=== PATIENT | male | born 1995 | race African-American/Black ===

== ENCOUNTER 2017-09-01 20:35 | Emergency (ER) | payer MEDICAID, SELFPAY ==
[2017-09-01 20:37] VITALS: BP 133/74; PULSE 93; RESP 18; TEMP 36.3; O2SAT 97; BMI 25.7
--- NOTE | 2017-09-01 21:00 | RAD_ITS ---
STUDY: X-RAY - ABDOMEN/PELVIS REASON FOR EXAM: Male, 22 years old. Abdominal pain and constipation TECHNIQUE: KUB COMPARISON: None. FINDINGS: Normal visualized lung bases. There is an unremarkable bowel gas pattern. There is no demonstrated free abdominal air. The visualized liver, spleen and kidneys are grossly normal in size and morphology. Normal soft tissue structures. Normal visualized osseous structures. RAD/Abdomen Single View IMPRESSION: Normal x-ray examination of the abdomen and pelvis. Electronically Signed: Andres Nava MD at 21:22 EDT , Service support ,
--- NOTE | 2017-09-01 22:01 | ED.DCSUM_ITS ---
- ER Visit Summary Date of Service: 09/01/17 Chief Complaint: Abdominal pain/constipation History of Present Illness: The patient is a 22 M who states over the past 2 weeks his constipation is been getting worse. He has cramping and sharp pain on the right side of his abdomen. He has had some slight nausea without vomiting. He states he has a history of constipation and IBS. He was taking Dulcolax and MiraLAX with leaf was stopped taking it. He is also requesting that we refill his depression medications. Physical Examination: Vital signs reviewed. HEENT exam unremarkable. Heart is regular rate and rhythm without murmurs. Lungs are clear to auscultation. Abdomen is soft with diffuse tenderness but right greater than left. Extremities reveal no edema. Skin exam normal. Neurologic exam normal. Test Results: KUB reveals nonspecific bowel gas Emergency Department Course and Treatment: I will restart the patient on his constipation medications. I will also refill his depression medications Treatment Plan: [] Disposition: Discharge Impression: Constipation This note was generated with [employer] dictation software. It may contain incorrect words, spelling, and punctuation that were not noted in review of the chart prior to signing ED Disposition - Plan for ED Patient: Chief Complaint: Abd Pain Referrals: Care Physician,No Primary [Primary Care Provider] -
--- NOTE | 2017-09-01 22:01 | ED.DEP ---
ED Disposition - Plan for ED Patient: Disposition: Home or Assisted Living Chief Complaint: Abd Pain Instructions: ED Constipation Prescriptions: Bisacodyl [Dulcolax] 5 mg PO DAILY #20 tab Polyethylene Glycol 3350 [Miralax] 17 gm PO DAILY #20 packet Sertraline HCl [Zoloft] 25 mg PO DAILY #30 tab Referrals: Care Physician,No Primary [Primary Care Provider] -
[2017-09-01 22:11] VITALS: RESP 16
--- NOTE | 2017-09-01 22:12 | ED.RN ---
REVIEWED D/C INSTRUCTIONS, FOLLOW UP CARE, PRESCRIPTIONS, AND S/S THAT WOULD WARRANT A RETURN TO THE ED WITH PT. PT VERBALIZED AN UNDERSTANDING AND DENIES FURTHER QUESTIONS FOR THIS RN. PT SKIN WARM AND DRY, RESP EVEN AND UNLABORED, PT A&O X 3, NO DISTRESS NOTED. PT AMBULATED OUT OF ED, GAIT STEADY.
== END 2017-09-01 22:13 | disposition home or self-care (01) ==
PROVIDERS: Emergency Provider Emergency Medicine
DX: K59.00 Constipation, unspecified (principal); F32.9 Major depressive disorder, single episode, unspecified
CPT/HCPCS: 74018; 99282

== ENCOUNTER 2017-12-28 18:59 | Emergency (ER) | payer MEDICAID, SELFPAY ==
[2017-12-28 19:00] VITALS: BP 144/84; PULSE 79; RESP 20; TEMP 36.7; O2SAT 99; BMI 24.7
--- NOTE | 2017-12-28 19:12 | CT_ITS ---
STUDY: CT ABDOMEN AND PELVIS WITHOUT CONTRAST REASON FOR EXAM: Male, 22 years old. Constipation with right lower quadrant pain RADIATION DOSAGE (If Supplied By Facility): CTDIvol = ( 6.55 ) mGy, DLP = ( 340.49 ) mGycm TECHNIQUE: Transaxial images were obtained from the dome of the diaphragm to the symphysis pubis without oral contrast, and without intravenous contrast. Sagittal and coronal images were reconstructed. Individualized dose optimization techniques were used for this CT. COMPARISON: 10/04/2016 FINDINGS: The visualized lung bases are unremarkable. The visualized portions of the heart are within normal limits. Normal liver. Normal gallbladder and extrahepatic biliary system. Normal spleen. Normal pancreas. Normal bilateral adrenal glands. Normal right kidney. Normal left kidney. Normal visualized stomach. Normal small intestine. Normal colon. Prominent fecal retention within the colon. The appendix is visualized and appears normal. Normal abdominal aorta. Normal inferior vena cava. Normal retroperitoneum. Normal urinary bladder. Normal visualized prostate gland. Normal abdominal wall. Normal osseous structures. CT/Abdomen/Pelvis without Cont IMPRESSION: Fecal retention in the colon. Normal appendix. Electronically Signed: Mian Dye DO at 20:02 EST Tel , Service support ,
--- NOTE | 2017-12-28 19:13 | ED.VISSUMM ---
- ER Visit Summary Date of Service: 12/28/17 Chief Complaint: Abdominal pain History of Present Illness: The patient is a 22 M presenting with abdominal pain. He states it started 2 weeks ago but gradually worsened. He states the pain is present most of the day. It is worse with eating. He has nausea with no vomiting. He complains of constipation. He complains of dysuria. He has a history of previous UTI. Denies possibility of STD. Denies penile discharge or rash. Denies fever. He has a history of IBS. Denies other complaints. Physical Examination: Vitals are stable. Patient is afebrile. Alert no acute distress. HEENT exam is unremarkable. Neck is supple. Lungs are clear and equal bilaterally. Heart is regular rate and rhythm. Abdomen is soft right lower quadrant tenderness with no rebound or guarding Rectal: No stool impaction, small amount of soft stool. : Declined Extremities are unremarkable. Skin is warm and dry. No focal neurologic deficit. Remainder of exam is unremarkable. Emergency Department Course and Treatment: Patient given IV fluids, Zofran. CBC, chemistries unremarkable. Lipase is normal. Urinalysis shows 10-25 white blood cells. Urine culture was sent. GC, chlamydia was sent. Patient refused exam. CT abdomen pelvis shows fecal retention, normal appendix. Patient is given mag citrate. He is given Bactrim. He is advised to follow-up with primary care physician. Advised return to ED for worsening complaints. Disposition: Discharge home Impression: Constipation, UTI This note was generated with [employer] dictation software. It may contain incorrect words, spelling, and punctuation that were not noted in review of the chart prior to signing ED Disposition - Plan for ED Patient: Chief Complaint: General Illness Instructions: ED Constipation Prescriptions: Smz/Tmp Ds [Bactrim Ds] 1 tablet PO BID #14 tablet Referrals: Tin Bauer MD [STAFF PHYSICIAN] - Care Physician,No Primary [Primary Care Provider] -
[2017-12-28 19:33] LABS: Red Blood Cells-Urine 0 SEEN /hpf (0-5)
--- NOTE | 2017-12-28 19:33 | RAD_ITS ---
STUDY: CT ABDOMEN AND PELVIS WITHOUT CONTRAST REASON FOR EXAM: Male, 22 years old. Constipation with right lower quadrant pain RADIATION DOSAGE (If Supplied By Facility): CTDIvol = ( 6.55 ) mGy, DLP = ( 340.49 ) mGycm TECHNIQUE: Transaxial images were obtained from the dome of the diaphragm to the symphysis pubis without oral contrast, and without intravenous contrast. Sagittal and coronal images were reconstructed. Individualized dose optimization techniques were used for this CT. COMPARISON: 10/04/2016 FINDINGS: The visualized lung bases are unremarkable. The visualized portions of the heart are within normal limits. Normal liver. Normal gallbladder and extrahepatic biliary system. Normal spleen. Normal pancreas. Normal bilateral adrenal glands. Normal right kidney. Normal left kidney. Normal visualized stomach. Normal small intestine. Normal colon. Prominent fecal retention within the colon. The appendix is visualized and appears normal. Normal abdominal aorta. Normal inferior vena cava. Normal retroperitoneum. Normal urinary bladder. Normal visualized prostate gland. Normal abdominal wall. Normal osseous structures. RAD/Abdomen Single View IMPRESSION: Fecal retention in the colon. Normal appendix. Electronically Signed: Mian Dye DO at 20:02 EST Tel , Service support ,
[2017-12-28 19:41] LABS: Color, Urine Yellow (Yellow); Glucose, Dipstick Normal (Normal); Ketone-Dipstick Negative (Negative); Leukocyte Esterase-Dipstick 100 /ul (Negative); Nitrite-Dipstick Negative (Negative); Occult Blood-Urine Negative /ul (Negative); Protein-Dipstick 15 mg/dl (Negative); Urine Bilirubin Dipstick 1 mg/dL (Negative); Urine Clarity Clear (Clear); Urine Urobilinogen 12 mg/dl (Normal)
[2017-12-28 19:49] LABS: Bacteria 1+ /hpf (None Seen); Mucous, Urine 1+ /hpf (<or=2+); Squamous Epithelial Cells - UA 0-5 SEEN /hpf (0-5); White Blood Cells 10-25 SEEN /hpf (0-5)
[2017-12-28 19:50] LABS: Absolute Lymphocyte Count 2.26 X10^3/ul (0.83-4.51); Absolute Neutrophil Count 1.6 X10^3/uL (2.0-7.7); Basophil# 0.05 X10^3/uL; Basophil% 1.1 % (0-1); Eosinophil# 0.45 X10^3/uL; Eosinophils% 9.8 % (0-5); Hematocrit 46.4 % (40-54); Hemoglobin 15.8 g/dl (13.0-16.5); Lymphocyte # 2.26 X10^3/ul (4.0); Mean Corp Hgb Conc 34.1 g/gl (32-36); Mean Corpuscular Hgb 28.3 pg (27.0-32.0); Mean Platelet Vol. 10.1 fl (6.2-12.0); Monocyte# 0.22 X10^3/uL; Monocyte% 4.8 % (0-10); Neutrophil # 1.63 X10^3/uL (2.7-7.7); Neutrophil % 35.3 % (47-70); POSITIVE COUNT NO; POSITIVE DIFFERENTIAL NO; POSITIVE MORPHOLOGY NO; Platelet Count 189 K/mm3 (150-450); RBC Distribution Width CV 12.7 % (11.6-14.6); Red Blood Count 5.59 M/mm3 (4.6-6.2); White Blood Count 4.6 K/mm3 (4.4-11.0)
[2017-12-28 19:58] LABS: Lipase 104 U/L (73-393)
[2017-12-28] MEDS: Ondansetron ODT 4 MG Tablet PO (20:00)
[2017-12-28 20:30] LABS: ALB/GLOB Ratio 1.2 RATIO (0.9-2.4); AST(SGOT) 19 U/L (15-37); Alanine Aminotransfer ALT/SGPT 21 U/L (16-61); Albumin, Serum 4.3 g/dL (3.2-5.0); Alkaline Phosphatase 70 U/L (45-117); Anion Gap 7 (5-15); BUN 8 mg/dL (7-18); BUN/Creat Ratio 8.5 RATIO (10-20); Calcium,Total 8.5 mg/dL (8.5-10.1); Chloride 107 mmol/L (98-107); Creatinine, Serum 0.94 mg/dL (0.70-1.30); EST Glomerular Filtration Rate 104 mL/min (>60); Est Glom Filt Rate - Afr Amer 125 mL/min (>60); Estimated Creatinine Clearance 129.06 ml/min; Globulin 3.5 g/dL (2.2-4.2); Glucose 97 mg/dL (74-106); Potassium 3.6 mmol/L (3.5-5.1); Protein, Total 7.8 g/dL (6.4-8.2); Sodium Level 143 mmol/L (136-145)
--- NOTE | 2017-12-28 20:33 | ED.DEP ---
ED Disposition - Plan for ED Patient: Chief Complaint: General Illness Instructions: ED Constipation Prescriptions: Smz/Tmp Ds [Bactrim Ds] 1 tablet PO BID #14 tablet Referrals: Care Physician,No Primary [Primary Care Provider] - Tin Bauer MD [STAFF PHYSICIAN] -
[2017-12-28 20:57] VITALS: RESP 14
[2017-12-28 23:01] LABS: Chlamydia Trachomatis by PCR Negative (Negative); Neisserai gonorrhoeae by PCR Negative (Negative); Probe Check PASS; Sample Adequacy Control PASS; Specimen Processing Control PASS
== END 2017-12-28 20:57 | disposition home or self-care (01) ==
LOC: ED 19:20
PROVIDERS: Emergency Provider Emergency Medicine
DX: K59.00 Constipation, unspecified (principal); N39.0 Urinary tract infection, site not specified
CPT/HCPCS: 74018; 74176; 80053; 81001; 83690; 85025; 87086; 87491; 87591; 99283; J7030; A4216

== ENCOUNTER 2018-02-27 11:54 | Emergency (ER) | payer MEDICAID, SELFPAY ==
[2018-02-27 11:55] VITALS: BP 148/84; PULSE 70; RESP 18; TEMP 36.6; O2SAT 100; BMI 25.1
--- NOTE | 2018-02-27 12:28 | ED.DCSUM_ITS ---
- ER Visit Summary Date of Service: 02/27/18 Chief Complaint: Upper respiratory infection systems, penile discharge History of Present Illness: The patient is a 23 M presents with 2 complaints, he has got cough congestion and bilateral ear pain, no shortness of breath he also has some penile discharge and dysuria. No fever or chills. Physical Examination: Not appear in acute distress. Moist mucous membranes, no obvious facial deformity. He has bilateral otitis media, he has swollen nasal turbinates, rhinorrhea, postnasal drip. No C-spine tenderness supple neck. Regular rate and rhythm without any obvious murmurs Clear lungs bilaterally speaking in full sentences without any obvious respiratory distress Abdomen soft and nontender no guarding or rebound Moves all extremities without any difficulty or pain. Skin does not show any obvious rashes or lesions, no trauma. Alert oriented ?3 with no gross focal deficit Emergency Department Course and Treatment: I will treat him for presumed STD, I will also treatment for his upper respiratory infection and otitis media. Discharge stable condition Impression: Otitis media Upper respiratory infection Presumed STD This note was generated with [employer] dictation software. It may contain incorrect words, spelling, and punctuation that were not noted in review of the chart prior to signing ED Disposition - Plan for ED Patient: Disposition: Home or Assisted Living Chief Complaint: General Illness Prescriptions: Amoxicillin/Potassium Clav [Augmentin 500-125 Tablet] 1 ea PO TID #21 tab Referrals: Care Physician,No Primary [Primary Care Provider] - 3-5 Days
[2018-02-27] MEDS: Ceftriaxone 500 MG Vial 250 MG IM (12:50)
[2018-02-27] MEDS: Azithromycin 250 MG Tablet 1000 MG PO (12:50)
[2018-02-27 13:13] VITALS: PULSE 82; RESP 16; O2SAT 99
[2018-02-27 14:30] LABS: Chlamydia Trachomatis by PCR Negative (Negative); Neisserai gonorrhoeae by PCR Negative (Negative); Probe Check PASS; Sample Adequacy Control PASS; Specimen Processing Control PASS
== END 2018-02-27 13:14 | disposition home or self-care (01) ==
PROVIDERS: Emergency Provider Emergency Medicine
DX: H66.93 Otitis media, unspecified, bilateral (principal); J06.9 Acute upper respiratory infection, unspecified; R36.9 Urethral discharge, unspecified
CPT/HCPCS: 87491; 87591; 99283

== ENCOUNTER 2018-03-22 15:35 | Emergency (ER) | payer MEDICAID, SELFPAY ==
[2018-03-22 15:36] VITALS: BP 144/83; PULSE 75; RESP 18; TEMP 37.1; O2SAT 99; BMI 25.7
--- NOTE | 2018-03-22 15:45 | EKG12_ITS ---
Test Reason : CHEST PAIN Blood Pressure : / mmHG Vent. Rate : 080 BPM Atrial Rate : 080 BPM P-R Int : 156 ms QRS Dur : 078 ms QT Int : 354 ms P-R-T Axes : 069 049 038 degrees QTc Int : 408 ms Normal sinus rhythm with sinus arrhythmia Normal ECG Confirmed by JASE MURGUIA, GARCÍA ([id number]), newspaper or periodical editor CAROLYN GURROLA ([id number]) on 03/25/2018 1:40:59 PM Referred By: AGUS Confirmed By:GARCÍA LAGUNA MD
--- NOTE | 2018-03-22 15:45 | CT_ITS ---
STUDY: CT ABDOMEN AND PELVIS WITH CONTRAST REASON FOR EXAM: Male, 23 years old. Right lower quadrant pain. RADIATION DOSAGE (If Supplied By Facility): CTDIvol = ( 10.77 ) mGy, DLP = ( 811.01 ) mGycm TECHNIQUE: Transaxial images were obtained from the dome of the diaphragm to the symphysis pubis without oral contrast. 100 ml of Isovue 300 contrast was administered. Sagittal and coronal images were reconstructed. Individualized dose optimization techniques were used for this CT. COMPARISON: December 28, 2017 FINDINGS: The visualized lung bases are unremarkable. The visualized portions of the heart are within normal limits. Normal liver. Normal gallbladder and extrahepatic biliary system. Normal spleen. Normal pancreas. Normal bilateral adrenal glands. Normal right kidney. Normal left kidney. Normal visualized stomach. Normal small intestine. Normal colon. The appendix is visualized and appears normal. Normal abdominal aorta. Normal inferior vena cava. Normal retroperitoneum. Normal urinary bladder. Normal abdominal wall. Normal osseous structures. CT/Abdomen/Pelvis WITH Contrast IMPRESSION: No acute intra-abdominal process. Within normal limits appearing appendix. Electronically Signed: Marifer Mcbride MD at 18:56 EST Tel , Service support ,
--- NOTE | 2018-03-22 15:50 | ED.DCSUM_ITS ---
- ER Visit Summary Date of Service: 03/22/18 Chief Complaint: Abdominal pain History of Present Illness: The patient is a 23 M presenting with abdominal pain. Patient states that this started 3 days ago. Pain has been constant. He feels a burning sensation that goes from his upper abdomen to his chest. He has a history of GERD. He states he took Prilosec between the ages of 13 and 18. He has not taken it since that time. He tried Tums at home with minimal improvement. He has nausea with no vomiting. Denies diarrhea or constipation. He complains of right lower quadrant pain which also began 3 days ago. Denies fever. Denies other complaints. Physical Examination: Vitals are stable. Patient is afebrile. Alert no acute distress. HEENT exam is unremarkable. Neck is supple. Lungs are clear and equal bilaterally. Heart is regular rate and rhythm. Abdomen is soft epigastric and right lower quadrant tenderness. No rebound or guarding Extremities are unremarkable. Skin is warm and dry. Remainder of exam is unremarkable. Emergency Department Course and Treatment: Patient was given IV fluids, Zofran. He was given a GI cocktail. EKG is sinus rate of 80 with no acute ischemic changes. CBC, chemistries unremarkable. Liver enzymes normal except total bili 1.2. Lipase is 74. Troponin is negative. CT abdomen pelvis shows no acute process. Patient is feeling improved on reevaluation. He is given a prescription for Prilosec. Advised to follow-up with primary care physician or GI. Advised return to ED if worsening complaints. Disposition: Discharge home Impression: Abdominal pain, GERD This note was generated with [employer] dictation software. It may contain incorrect words, spelling, and punctuation that were not noted in review of the chart prior to signing ED Disposition - Plan for ED Patient: Referrals: Care Physician,No Primary [Primary Care Provider] -
[2018-03-22] MEDS: Ondansetron 4 MG/2 ML Vial IV (16:06)
[2018-03-22 16:11] LABS: Absolute Lymphocyte Count 2.52 X10^3/ul (0.83-4.51); Absolute Neutrophil Count 2.3 X10^3/uL (2.0-7.7); Basophil# 0.05 X10^3/uL; Basophil% 0.9 % (0-1); Eosinophil# 0.54 X10^3/uL; Eosinophils% 9.2 % (0-5); Hematocrit 46.3 % (40-54); Hemoglobin 16.5 g/dl (13.0-16.5); Lymphocyte # 2.52 X10^3/ul (4.0); Lymphocyte % 43.1 % (19-41); Mean Corp Hgb Conc 35.6 g/gl (32-36); Mean Corpuscular Hgb 28.4 pg (27.0-32.0); Mean Corpuscular Volume 79.7 fL (80-94); Mean Platelet Vol. 9.5 fl (6.2-12.0); Monocyte# 0.39 X10^3/uL; Monocyte% 6.7 % (0-10); Neutrophil # 2.32 X10^3/uL (2.7-7.7); Neutrophil % 39.6 % (47-70); POSITIVE COUNT NO; POSITIVE DIFFERENTIAL NO; POSITIVE MORPHOLOGY NO; Platelet Count 232 K/mm3 (150-450); RBC Distribution Width CV 13.2 % (11.6-14.6); RBC Distribution Width SD 37.6 fl (35.1-43.9); Red Blood Count 5.81 M/mm3 (4.6-6.2); White Blood Count 5.9 K/mm3 (4.4-11.0)
[2018-03-22] MEDS: 0.9% Normal Saline 1,000 ML 1000 ML IV (16:19)
[2018-03-22 16:27] LABS: AST(SGOT) 24 U/L (15-37); Alanine Aminotransfer ALT/SGPT 44 U/L (16-61); Albumin, Serum 4.1 g/dL (3.2-5.0); Alkaline Phosphatase 75 U/L (45-117); Anion Gap 8 (5-15); BUN 11 mg/dL (7-18); BUN/Creat Ratio 9.9 RATIO (10-20); Calcium,Total 9.1 mg/dL (8.5-10.1); Chloride 106 mmol/L (98-107); Creatinine, Serum 1.11 mg/dL (0.70-1.30); EST Glomerular Filtration Rate 86 mL/min (>60); Est Glom Filt Rate - Afr Amer 104 mL/min (>60); Estimated Creatinine Clearance 108.35 ml/min; Glucose 90 mg/dL (74-106); Lipase 74 U/L (73-393); Potassium 3.8 mmol/L (3.5-5.1); Protein, Total 8.1 g/dL (6.4-8.2); Sodium Level 141 mmol/L (136-145)
[2018-03-22] MEDS: Mag Hydrox/Al Hydrox/Simeth 30 ML UDC PO (16:38)
[2018-03-22 18:34] VITALS: BP 137/87; PULSE 71; RESP 16; O2SAT 99
--- NOTE | 2018-03-22 19:11 | ED.DEP ---
ED Disposition - Plan for ED Patient: Instructions: ED GERD Prescriptions: Omeprazole [Prilosec] 20 mg PO DAILY #30 capsule Referrals: Rafy Rodriguez DO [STAFF PHYSICIAN] - Jim Jefferson MD [NON-STAFF] -
[2018-03-22 19:27] VITALS: BP 128/84; PULSE 80; RESP 16; O2SAT 98
== END 2018-03-22 19:27 | disposition home or self-care (01) ==
LOC: ED 16:23
PROVIDERS: Emergency Provider Emergency Medicine
DX: R10.13 Epigastric pain (principal); R10.31 Right lower quadrant pain; K21.9 Gastro-esophageal reflux disease without esophagitis
CPT/HCPCS: 74177; 80053; 83690; 84484; 85025; 93005; 96361; 96374; 99285; J7030; Q9967; A4216; J2405

== ENCOUNTER 2018-04-01 20:10 | Emergency (ER) | payer MEDICAID, SELFPAY ==
[2018-04-01 20:11] VITALS: BP 150/97; PULSE 83; RESP 14; TEMP 36.7; O2SAT 99; BMI 26.4
--- NOTE | 2018-04-01 20:59 | RAD_ITS ---
STUDY: X-RAY - SOFT TISSUE NECK REASON FOR EXAM: Male, 23 years old. Rash and difficulty swallowing. TECHNIQUE: 2 view(s) of the neck were obtained. COMPARISON: None. FINDINGS: Normal visualized nasopharynx, oropharynx, hypopharynx. Normal epiglottis. Normal visualized subglottic tracheal air column. Normal prevertebral soft tissue structures. Normal visualized osseous structures. The soft tissue structures are unremarkable. RAD/Neck for Soft Tissue IMPRESSION: Normal x-ray soft tissue neck. Electronically Signed: Kapil Pang MD at 21:48 EST , Service support ,
--- NOTE | 2018-04-01 21:10 | RAD_ITS ---
STUDY: X-RAY CHEST REASON FOR EXAM: Male, 23 years old. Rash and difficulty swallowing. TECHNIQUE: Frontal and lateral views of the chest. COMPARISON: None. FINDINGS: The lungs are clear and expanded. There is no demonstrated pleural abnormality. Normal size heart. Normal mediastinum and roland. Normal visualized pulmonary arteries. Normal visualized aortic arch and descending thoracic aorta. Normal visualized thoracic spine. Normal visualized ribs, clavicles, and shoulders. There is no demonstrated abnormality of the visualized soft tissue structures of the upper abdomen. RAD/Chest PA and Lateral IMPRESSION: Normal x-ray examination of the chest. Electronically Signed: Kapil Pang MD at 21:48 EST , Service support ,
--- NOTE | 2018-04-01 22:09 | ED.VISSUMM ---
- ER Visit Summary Date of Service: 04/01/18 Chief Complaint: Allergic reaction History of Present Illness: The patient is a 23 M who is currently on omeprazole for reflux. Patient states that since starting this medication a few weeks ago he is noted a slight rash to his chest and some throat tightness. He believes this is a reaction to the medicine. It was initially documented that he had taken this medication between the ages of 13 and 18, but now states that he is only on it for about a week total that whole time. Patient is also complaining of bilateral ear pain. Physical Examination: Vital signs significant for blood pressure 150/97, otherwise unremarkable. Patient sitting upright in bed no acute distress. Head and neck examination is unremarkable. TMs are clear bilaterally. Posterior pharynx examination does reveal some evidence of sinus drainage. Uvula is midline. He is tolerating secretions well and has a strong voice. Heart is regular rate and rhythm. Lungs sounds clear. Abdomen soft nontender. Skin examination does not reveal obvious rash. Test Results: Chest x-ray is unremarkable. Soft tissue neck x-ray is normal. Emergency Department Course and Treatment: Patient be given a prescription for Pepcid and will stop omeprazole to see if this resolves his side effects. He also be given a prescription for Claritin to help with his sinus drainage. Treatment Plan: Follow-up with GI specialist in [place] Disposition: Discharge Impression: Allergic drug reaction This note was generated with [employer] dictation software. It may contain incorrect words, spelling, and punctuation that were not noted in review of the chart prior to signing ED Disposition - Plan for ED Patient: Disposition: Home or Assisted Living Instructions: ED Drug React Adverse Other Prescriptions: Famotidine [Pepcid] 40 mg PO DAILY #30 tablet Loratadine [Claritin] 10 mg PO DAILY #30 tablet Referrals: Care Physician,No Primary [Primary Care Provider] - Additional Instructions: Follow-up with your GI specialist in 1-2 weeks.
--- NOTE | 2018-04-01 22:20 | ED.DEP ---
ED Disposition - Plan for ED Patient: Disposition: Home or Assisted Living Instructions: ED Drug React Adverse Other Prescriptions: Famotidine [Pepcid] 40 mg PO DAILY #30 tablet Loratadine [Claritin] 10 mg PO DAILY #30 tablet Additional Instructions: Follow-up with your GI specialist in 1-2 weeks.
[2018-04-01 22:33] VITALS: BP 133/80; PULSE 74; RESP 18; O2SAT 98
== END 2018-04-01 22:34 | disposition home or self-care (01) ==
PROVIDERS: Emergency Provider Emergency Medicine
DX: L27.1 Localized skin eruption due to drugs and medicaments taken internally (principal); R09.89 Other specified symptoms and signs involving the circulatory and respiratory systems; T47.1X5A Adverse effect of other antacids and anti-gastric-secretion drugs, initial encounter; Y92.9 Unspecified place or not applicable; K21.9 Gastro-esophageal reflux disease without esophagitis
CPT/HCPCS: 70360; 71046; 99282

== ENCOUNTER 2018-04-18 02:52 | Emergency (ER) | payer OTHER, MEDICAID, SELFPAY ==
--- NOTE | 2018-04-18 02:53 | ED.RN ---
CALLED VANE FROM [facility], SHE WILL BE IN
[2018-04-18 02:54] VITALS: BP 160/90; PULSE 96; RESP 16; TEMP 36.6; O2SAT 100; BMI 27.2
--- NOTE | 2018-04-18 03:05 | RAD_ITS ---
HISTORY: dropped boards on lt foot c/o pain area of 1st metatarsal COMPARISON: None FINDINGS: # of images incl. paperwork: 3 XR Foot Min 3 Views: Left SOFT TISSUES: Unremarkable. No radiopaque foreign body. BONES: No acute fracture or subluxation. No sclerotic or destructive changes observed. JOINTS: Preservation of the joint space. Articular surfaces are unremarkable. RAD/Foot min 3 Views IMPRESSION: Negative. at 0334 Reported and signed by: Alejandro Charles MD Electronically Signed: Alejandro Charles, at 3:33 EST Tel , Service support ,
--- NOTE | 2018-04-18 03:44 | ED.VISSUMM ---
- ER Visit Summary Date of Service: 04/18/18 Chief Complaint: Left foot pain History of Present Illness: The patient is a 23 M who presents with left foot pain. While at work he had a stack of boards fall onto his left foot. He has been able to ambulate. He denies any paresthesias weakness loss of function. This occurred about 1 hour before presentation. Physical Examination: Afebrile vitals stable No distress Patient does have pain on palpation of the medial left foot he has no ankle tenderness no obvious signs of trauma such as laceration contusion abrasion hematoma soft tissue swelling he has an easily palpable dorsalis pedis pulse with brisk capillary refill normal sensation Test Results: Foot x-ray is negative Emergency Department Course and Treatment: Patient advised on supportive care including rest ice and elevation. He was advised to use to inflammatory for pain was discharged home. Treatment Plan: [] Disposition: Discharge Impression: Left foot contusion This note was generated with [employer] dictation software. It may contain incorrect words, spelling, and punctuation that were not noted in review of the chart prior to signing ED Disposition - Plan for ED Patient: Referrals: Care Physician,No Primary [Primary Care Provider] -
--- NOTE | 2018-04-18 03:46 | ED.DEP ---
ED Disposition - Plan for ED Patient: Instructions: ED Contusion Foot Referrals: Care Physician,No Primary [Primary Care Provider] - Corporate,Care [GROUP OF PHYSICIANS] -
[2018-04-18 04:03] VITALS: BP 159/90; RESP 16
== END 2018-04-18 04:03 | disposition home or self-care (01) ==
PROVIDERS: Emergency Provider Emergency Medicine
DX: S90.32XA Contusion of left foot, initial encounter (principal); W20.8XXA Other cause of strike by thrown, projected or falling object, initial encounter; Y93.9 Activity, unspecified; Y92.9 Unspecified place or not applicable; Y99.0 Civilian activity done for income or pay
CPT/HCPCS: 73630; 99283